=== PATIENT | male | born 1970 | race Two or more races ===

== ENCOUNTER → 2019-02-02 | Emergency (ER) | payer OTHER ==
[~2019-02-02] VITALS: Ht 172.7 cm; Wt 93.0 kg
[~2019-02-02] MED LIST: ALL DAY ALLERGY10 M3 PO; BETAMETHASONE D15 G3 TOP; LIDODERM30 EA TP; MEDROL4 MG PO; MEDROLPACK PO; ORPH100T PO; PERCOCET 5/3251 TAB PO
== END | disposition home or self-care (01) ==
LOC: ER 21:07
DX: L23.89 Allergic contact dermatitis due to other agents (principal)

== ENCOUNTER 2019-06-07 20:20 | Emergency (ER) | payer OTHER ==
[~2019-06-07] VITALS: Ht 167.6 cm; Wt 90.7 kg
== END 2019-06-07 22:11 | disposition home or self-care (01) ==
LOC: ER 20:20
DX: T78.49XA Other allergy, initial encounter (principal); L30.8 Other specified dermatitis

== ENCOUNTER 2019-06-09 18:36 | Emergency (ER) | payer OTHER ==
[~2019-06-09] VITALS: Ht 167.6 cm; Wt 90.7 kg
[2019-06-09] MEDS ORDERED: ASMANEX HFA13 G1 (18:53)
[2019-06-09] MEDS ORDERED: BENADRYL50 MG (18:54)
== END 2019-06-09 23:01 | disposition home or self-care (01) ==
LOC: ER 18:36
DX: A77.0 Spotted fever due to Rickettsia rickettsii (principal)

== ENCOUNTER 2019-07-03 14:50 | Emergency (ER) | payer OTHER ==
[~2019-07-03] VITALS: Ht 167.6 cm; Wt 90.7 kg
[~2019-07-03 14:50] MED LIST changes: +ASMANEX HFA13 G1; +BENADRYL50 MG
[2019-07-03] MEDS ORDERED: MEDROLPACK (15:03)
== END 2019-07-03 15:29 | disposition home or self-care (01) ==
LOC: ER 14:50
DX: L20.89 Other atopic dermatitis (principal)

== ENCOUNTER 2019-08-15 08:58 | Emergency (ER) | payer OTHER ==
[~2019-08-15] VITALS: Ht 167.6 cm; Wt 90.7 kg
[~2019-08-15 08:58] MED LIST changes: +MEDROLPACK
[2019-08-15] MEDS ORDERED: ZYRTEC10 M3 (09:13)
== END 2019-08-15 15:52 | disposition home or self-care (01) ==
LOC: ER 08:58
DX: K52.9 Noninfective gastroenteritis and colitis, unspecified (principal)